=== PATIENT | female | born 1975 | race Hispanic/Latino ===

== ENCOUNTER 2017-10-06 22:09 | Emergency (ER) | payer SELFPAY ==
--- NOTE | 2017-10-06 22:48 | Emergency Department Report ---
ED CPR HPI - General Stated Complaint: CARDIAC ARREST Time Seen by Provider: 10/06/17 22:44 Source: EMS - History of Present Illness Initial Comments: Found down by EMS at home family was in the shower when they got outpatient was found down on the floor estimated down time was 25 minutes by the time EMS got there. EMS states that the patient was in asystole and they proceeded to institute full ACLS protocol including IV access and airway they gave multiple doses of epinephrine as well as an Accu-Chek Narcan patient was down about 45 minutes when they arrived to this facility patient had persistent asystole, full ACLS including CPR coronary EMS was instructed to. When the patient arrived here EMS thought there may have been a ROSc With a rhythm of pEA patient was brought into the code area. Down time on arrival was approximately 45-50 minutes patient rise PDA no pulse not pressure no spontaneous respirations MD Complaint: found unresponsive, stopped breathing ED Review of Systems ROS: Stated complaint: CARDIAC ARREST Other details as noted in HPI Comment: Unobtainable due to pts medical conditions ED Physical Exam - General Limitations: Altered Mental Status General appearance: lethargic, obtunded - Head Head exam: Present: atraumatic, normocephalic - Eye Eye exam: Present: other (dilated and nonreactive) - Neck Neck exam: Present: normal inspection, other. Absent: tenderness - Respiratory Respiratory exam: Present: other (no spontaneous respirations breath sounds equal bilaterally with bagging airway) - Cardiovascular Cardiovascular Exam: Present: other (no palpable pulse, no heart tones) - Rectal Rectal exam: Present: deferred - Extremities Exam Extremities exam: Present: other (extremities were cyanotic). Absent: normal capillary refill - Neurological Exam Neurological exam: Present: other (no motor or sensory activity) - Skin Skin exam: Present: cyanosis, diaphoretic, pallor, other (touch). Absent: urticaria, vesicles, petechiae ED Course - Reevaluation(s) Reevaluation #1: 10/06/17 23:40 Patient's initial demurrage man grullon additional he attempts to have a possible unsuccessful we did continue CPR patient did lose IV and airway however we were able to continue bagging patient had fixed dilated pupils have been down 50 min. We were unable to Doppler a pulse efforts were deemed futile given the evidence of severe brain injury. And no spontaneous return of circulation without any pulse or spontaneous respirations or motor activity patient was pronounced ED Medical Decision Making - Medical Decision Making Family was notified patient essentially arrived DOA ,down greater than 50 minutes for [facility] protocol was unsuccessful ,without ROSc. Critical care attestation.: If time is entered above; I have spent that time in minutes in the direct care of this critically ill patient, excluding procedure time. ED Disposition Clinical Impression: Asystole, Cardiopulmonary arrest Disposition: DC-20 Is pt being admited?: No Condition: Undetermined Time of Disposition: 23:44
== END 2017-10-07 00:56 ==
LOC: EDBD → ED 22:09
DX: I46.9 Cardiac arrest, cause unspecified (principal)
CPT/HCPCS: 92950; 99285